=== PATIENT | male | born 1960 | race Caucasian/White ===

== ENCOUNTER 2017-02-03 14:00 | Outpatient (CLI) | payer BC, OTHER ==
[~2017-02-03 14:00] MED LIST: ATOR20TA66 PO; OLME40TA14 PO
--- OUTSIDE RECORDS SUMMARY | 2017-02-03 14:19 | XMS REPORT | Continuity of Care Document ---
Author Author [facility] Organization [facility] Address Unknown Phone Unavailable Allergies Medications Problems Procedures Results Encounters ACCT No. Visit Date/Time Discharge Status Pt. Type Provider Facility Loc./Unit Complaint [id number] 12/14/2013 07:31:00 2013 10:30:00 DIS Outpatient [id number] 12/08/2013 07:14:00 2013 23:59:59 CLS Outpatient
== END 2017-02-03 14:30 | disposition home or self-care (01) ==
LOC: SLEEP 14:00
PROVIDERS: ATTEND Nurse Practitioner Family
DX: G47.10 Hypersomnia, unspecified (principal); R06.83 Snoring; G47.30 Sleep apnea, unspecified

== ENCOUNTER 2017-06-22 08:56 | Emergency (ER) | payer OTHER ==
[~2017-06-22] VITALS: Ht 190.5 cm; Wt 133.8 kg
[2017-06-22] MEDS ORDERED: ATOR40TA70 PO (09:12)
[2017-06-22] MEDS ORDERED: HCTZ PO (09:12)
[2017-06-22] MEDS ORDERED: IRBE75TA10 PO (09:12)
[2017-06-22] MEDS ORDERED: TETANUS,DIPTH,PERTUSS P/F (BOOSTRIX) 0.5 ML VIAL IM ONE (09:15)
--- NOTE | 2017-06-22 09:37 | ED Integumentary General ---
General Chief Complaint: Bite-Animal/Human/Insect Stated Complaint: SPIDER BITE Nursing Triage Note: PT STATES HAS SPIDER BITE TO R EAR YESTERDAY, PT DID SEE SPIDER, PT HAS R SWOLLEN EAR, REDNESS AND SOME OOZING NOTED, PT HAS R SIDED GLANDS SWOLLEN IN NECK Source: patient Exam Limitations: no limitations History of Present Illness Time seen by provider: 09:29 Initial Comments The patient is a 56-year-old white male known to me for many years. He reports that yesterday while walking inside his house he felt the sensation of something crawling near his right ear. He brushed it away but continued to feel that and when he swept it away the second time he felt a sharp stinging sensation. He saw the spider but did not examine had for characteristics. Today he notes swelling of the right earlobe and some extension of swelling and discomfort along the sternocleidomastoid. Timing/Duration: yesterday Location: face Possible Cause: insect bite Associated Symptoms: edema, flushing, rash Allergies and Home Medications Allergies Coded Allergies: No Known Drug Allergies (Unverified , 07/05/11) Home Medications Atorvastatin Calcium 40 Mg Tablet, 40 MG PO DAILY, (Reported) Irbesartan 75 Mg Tablet, Unknown Dose PO, (Reported) [Hctz] , 25 PO DAILY, (Reported) Constitutional: see HPI EENTM: ear pain (external) Respiratory: no symptoms reported Cardiovascular: no symptoms reported Gastrointestinal: no symptoms reported Genitourinary: no symptoms reported Musculoskeletal: no symptoms reported Skin: no symptoms reported Psychiatric/Neurological: No Symptoms Reported Endocrine: No Symptoms Reported Hematologic/Lymphatic: No Symptoms Reported Past Lpayebl-Ypqhlh-Trtsmz Hx Patient Social History Alcohol Use: Denies Use Recreational Drug Use: No Smoking Status: Never a Smoker Recent Foreign Travel: No Contact w/Someone Who Travel: No Recent Infectious Disease Expo: No Recent Hopitalizations: No Immunizations Up To Date Tetanus Booster (TDap): Unknown Date of Influenza Vaccine: Nov 13, 2013 Respiratory Hx Respiratory Disorders: No Cardiovascular Hx Cardiac Disorders: No Cardiac Disorders: High Cholesterol, Hypertension Gastrointestinal Hx Gastrointestinal Disorders: No Musculoskeletal Hx Musculoskeletal Disorders: No Endocrine Hx Endocrine Disorders: No Physical Exam Vital Signs Vital Sign - Last 12Hours 06/22/17 09:00 Temp 97.4 Pulse 62 Resp 18 B/P (MAP) 154/104 Pulse Ox 95 Capillary Refill : Less Than 3 Seconds General Appearance: WD/WN, no apparent distress HEENT: other (see comment section) Neck: lymphadenopathy (R) (anterior cervical) Cardiovascular: normal peripheral pulses, regular rate, rhythm, no edema, no gallop, no JVD, no murmur Respiratory: chest non-tender, lungs clear, normal breath sounds, no respiratory distress, no accessory muscle use Comments The right earlobe is red and slightly warm and clearly edematous. On the posterior surface there are multiple serum crystals. There is erythema and firmness that goes from the mastoid shelter down the sternocleidomastoid. Progress/Results/Core Measures Results/Orders My Orders Orders - REHANA HUFF MD Dipht,Pertuss(Acell),Tet Adult (Boostrix (06/22/17 09:15) Medications Given in ED Current Medications Medications Dose Ordered Sig/Brent Route Start Time Stop Time Status Last Admin Dose Admin Diphtheria/ Tetanus/Acell Pertussis 0.5 ml ONCE ONCE IM 06/22/17 09:15 06/22/17 09:16 DC 06/22/17 09:15 0.5 ML Vital Signs/I&O Vital Sign - Last 12Hours 06/22/17 09:00 Temp 97.4 Pulse 62 Resp 18 B/P (MAP) 154/104 Pulse Ox 95 Blood Pressure Mean: 121 Departure Impression Impression: Primary Impression: inflammatory dermatitis consistent with spider bite Disposition: 01 HOME, SELF-CARE Condition: Stable/Unchanged Departure-Patient Inst. Decision time for Depature: 09:38 Referrals: MARTHA JIMENEZ MD (PCP/Family) Primary Care Physician Patient Instructions: Insect Bites and Stings (DC) Add. Discharge Instructions: All discharge instructions reviewed with patient and/or family. Voiced understanding. Use cold compresses at intervals today. Steroid cream as directed. If significant negative developments over the next 24 hours see your provider tomorrow Scripts Triamcinolone Acetonide (Triamcinolone Acetonide 0.5% Cream) 15 Gm Cream..g. 15 GM TP 3 times a day, #1 TUBE Prov: REHANA HUFF MD 06/22/17 REHANA HUFF MD Jun 22, 2017 09:37
[2017-06-22] MEDS ORDERED: TRIA15CR TP (09:39)
[2017-06-22 09:43] VITALS: BP 154/104
== END 2017-06-22 09:43 | disposition home or self-care (01) ==
LOC: EDUNIT# 08:56 → ER 08:57
DX: L30.9 Dermatitis, unspecified (principal); E78.00 Pure hypercholesterolemia, unspecified; I10 Essential (primary) hypertension
CPT/HCPCS: 90471; 90715; 99284

== ENCOUNTER 2019-07-01 10:45 | Outpatient (CLI) | payer OTHER ==
[~2019-07-01] VITALS: Ht 190.5 cm; Wt 133.8 kg
[~2019-07-01 10:45] MED LIST changes: +ATOR40TA70 PO; +HCTZ PO; +IRBE75TA10 PO; +TRIA15CR TP
[2019-07-01] MEDS ORDERED: CHLO25TA22 PO (10:51)
[2019-07-01] MEDS ORDERED: HYDR25TA4 PO (10:51)
[2019-07-01] MEDS ORDERED: PHEN-483 PO (10:51)
[2019-07-01] MEDS ORDERED: ROSU20TA31 PO (10:51)
[2019-07-01] MEDS ORDERED: IRBE300T18 PO (10:51)
== END 2019-07-01 11:48 | disposition home or self-care (01) ==
LOC: PREOP 10:45
PROVIDERS: ATTEND Internal Medicine
DX: Z01.818 Encounter for other preprocedural examination (principal)

== ENCOUNTER 2019-07-02 07:22 | Day surgery (SDC) | payer OTHER ==
--- NOTE | 2019-06-23 05:05 | HISTORY AND PHYSICAL ---
DATE OF SERVICE: 07/02/2019 COLONOSCOPY HISTORY AND PHYSICAL The patient was seen in the office on 06/21/2019, for followup of hypertension, obesity, on weight loss medication. He has a past history of adenomatous colonic polyp removal and is due for a surveillance colonoscopy which is set up for 07/02. He also reports that he is having some right intermittent medial knee discomfort. He has been walking 4-6 miles daily and has been getting along with phentermine well and his weight was down another 6.2 pounds over the last 3 months for a total weight loss of 17 pounds over the past six months. He had been steadily gaining weight prior to that. He has noticed no blood in his stool. Denies abdominal pain or bowel habit change. PHYSICAL EXAMINATION: GENERAL: Reveals a white male, appeared to be in no acute distress. VITAL SIGNS: He is 6 feet 2 inches tall and weight is down to 293.8 pounds. Blood pressure is 122/78. CHEST: Clear. CARDIOVASCULAR: Revealed a regular rate and rhythm without murmur, S3 or S4. ABDOMEN: Soft, supple without mass, organomegaly or tenderness. Rectal examination was deferred at the time of colonoscopy. EXTREMITIES: Reveal no cyanosis, clubbing or edema. He has pain over the right anserine bursa. There is some slight warmth without evidence for erythema. ASSESSMENT AND PLAN: 1. The patient was set up for surveillance colonoscopy due to past history of colon polyps on 07/02. Prep instructions for Suprep kit were given and questions were answered. 2. He is reassured about some onychomycosis of the right great toenail. He had already failed the oral therapy, did not advise a second round or different medication at this time due to its asymptomatic nature. 3. Right anserine bursitis, ibuprofen p.r.n. and ice. Discussed if his symptoms were not improving or getting worse to return for consideration for steroid injection. 4. Hypertension, under good control aided by weight loss. Continue current antihypertensives and phentermine which has not aggravated hypertension. Job ID: [id number] DocumentID: [id number] Dictated Date: 06/21/2019 16:43:44 Psychology Physician Date: 06/21/2019 17:49:33 Dictated By: MARTHA JIMENEZ MD
[~2019-07-02] VITALS: Ht 190.5 cm; Wt 133.8 kg
[2019-07-02] VITALS (10 sets, daily range): BP systolic 108–137; BP diastolic 63–86
[~2019-07-02 07:22] MED LIST changes: +CHLO25TA22 PO; +HYDR25TA4 PO; +IRBE300T18 PO; +PHEN-483 PO; +ROSU20TA32 PO
[2019-07-02] MEDS ORDERED: D5 LR IV SOLUTION 1,000 ML IV ONE (07:30)
[2019-07-02] MEDS ORDERED: D5 LR IV SOLUTION 1,000 ML IV STA (07:51)
[2019-07-02] MEDS ORDERED: LIDOCAINE JELLY 2% 6 ML SYRINGE ONE (07:57)
[2019-07-02] MEDS ORDERED: fentaNYL INJECTION 100 MCG/2 ML AMP ONE (07:57)
[2019-07-02] MEDS ORDERED: MIDAZOLAM 2 MG/2 ML (VERSED) VIAL ONE ×2 (07:58)
[2019-07-02] MEDS ORDERED: LIDOCAINE JELLY 2% 6 ML SYRINGE MM PRN (08:00)
[2019-07-02] MEDS ORDERED: fentaNYL INJECTION 100 MCG/2 ML AMP IVP ONE (08:00)
[2019-07-02] MEDS ORDERED: MIDAZOLAM 2 MG/2 ML (VERSED) VIAL IVP ONE (08:00)
--- NOTE | 2019-07-02 08:02 | Pre-Op Note & Conscious Sedat ---
Pre-Operative Progress Note H&P Reviewed The H&P was reviewed, patient examined and no changes noted. Date H&P Reviewed: Jul 02, 2019 Time H&P Reviewed: 07:45 Conscious Sedation Pre-Proced ASA Score 2 For ASA 3 and 4: Consider anesthesia and medical clearance. Also, for patients with a history of failed moderate sedation consider anesthesia. Airway Lungs Heart ASA score ASA 1: a normal healthy patient ASA 2: a patient with a mild systemic disease (mid diabetes, controlled hypertension, obesity ASA 3: a patient with a severe systemic disease that limits activity (angina, COPD, prior Myocardial infarction) ASA 4: a patient with an incapacitating disease that is a constant threat to life (CHF, renal failure) ASA 5: a moribund patient not expected to survive 24 hrs. (ruptured aneurysm) ASA 6: a declared brain- patient whose organs are being harvested. For emergent operations, add the letter E after the classification Mallampati Classification Grade 2 Sedation Plan Analgesia, Amnesia, Plan communicated to team members, Discussed options with patient/fam, Discussed risks with patient/fam The patient is an appropriate candidate to undergo the planned procedure, sedation, and anesthesia. The patient immediately re-assessed prior to indication. MARTHA JIMENEZ MD Jul 02, 2019 08:02
--- NOTE | 2019-07-02 15:04 | OPERATIVE REPORT ---
DATE OF SERVICE: 07/02/2019 COLONOSCOPY SUMMARY INDICATION FOR THE PROCEDURE: History of colon polyps. PROCEDURE IN DETAIL: The patient was placed in left lateral decubitus position. Prior to undergoing colonoscopy, digital rectal evaluation was performed. Anal sphincter tone was normal and the perianal reflex was intact. No abnormalities were noted on digital inspection of anal canal or distal rectal vault. Prostate is small in size, anodular and nontender to digital inspection. The colonoscope was then inserted into the rectum and under direct visualization advanced to cecum. The cecum was identified by identification of ileocecal valve and cecal strap and appendiceal orifice. Photographic documentation was obtained. Careful inspection was made as the colonoscope was withdrawn. The quality of prep was good. FINDINGS: There was no evidence for internal or external hemorrhoids. The rectum, sigmoid colon, descending colon, transverse colon, ascending colon and cecum were unremarkable. No evidence for diverticulum, polyps or inflammatory change was noted. ASSESSMENT: Normal colonoscopy to the cecum. We will advocate increasing surveillance interval to 5 years. Job ID: [id number] DocumentID: [id number] Dictated Date: 07/02/2019 08:42:56 [employer]cre[employer] Operator Date: 07/02/2019 15:04:47 Dictated By: MARTHA JIMENEZ MD MTDD
== END 2019-07-02 09:15 | disposition home or self-care (01) ==
LOC: ENDO 07:22
PROVIDERS: ATTEND Internal Medicine
DX: Z12.11 Encounter for screening for malignant neoplasm of colon (principal); I10 Essential (primary) hypertension; M71.50 Other bursitis, not elsewhere classified, unspecified site; E66.9 Obesity, unspecified; Z68.36 Body mass index [BMI] 36.0-36.9, adult; Z86.010 Personal history of colon polyps

== ENCOUNTER 2023-08-02 10:21 | Emergency (ER) | payer OTHER ==
[~2023-08-02] VITALS: Ht 187.9 cm; Wt 136.0 kg
[~2023-08-02 10:21] MED LIST changes: +IRBE300T17 PO; -IRBE300T18 PO; -IRBE75TA10 PO; +IRBE75TA9 PO; -ROSU20TA32 PO; +ROSU20TA73 PO
[2023-08-02] MEDS ORDERED: PRD20T PO (11:02)
--- NOTE | 2023-08-02 11:03 | ED Integumentary General ---
General Chief Complaint: Skin/Wound Problems Stated Complaint: RASH Nursing Triage Note: PT AMB TO [facility] WITH CC OF RASH ON ARMPITS AND GROIN AREA THAT STARTED FRIDAY. PT REPORTS THAT THE RASH SPREAD ALL OVER BODY ON FRIDAY OR FRIDAY. PT STATES THAT THE RASH ITCHES. Source: patient Exam Limitations: no limitations History of Present Illness Date Seen by Provider: Aug 02, 2023 Time Seen by Provider: 10:47 Initial Comments Here with report of rash to his inner arms that has been going on for almost the last week after he was working in the garden and he thought that this may be related to poison deborah. He played [employer] ball Friday and noted a rash on Friday in the area of the armpits in the groin that seems to have worsened. States that it feels better when he takes a warm shower but it gets worse afterwards and the itching is more significant this morning. Also has some itching to his feet. Has had long history of excess sweating of his feet. States that the rash to the arm pits and groin started after the exercise and he was quite sweaty. Denies fever or chills. Does not seem to be expanding further than the areas listed. He denies diabetes. Otherwise fairly healthy and active. Denies tick bite exposure Timing/Duration: week, getting worse Severity: mild Location: torso, feet, genitalia Possible Cause: exposure to allergen Associated Symptoms: No fever; rash Allergies and Home Medications Allergies Coded Allergies: No Known Drug Allergies (Unverified , 07/01/19) Patient Home Medication List Home Medication List Reviewed: Yes Chlorthalidone (Chlorthalidone) 25 Mg Tablet, 25 MG PO DAILY, (Reported) Entered as Reported by: WAYNE DAVEY on 07/01/19 1051 Irbesartan (Irbesartan) 300 Mg Tablet, 300 MG PO DAILY, (Reported) Entered as Reported by: WAYNE DAVEY on 07/01/19 1051 Phentermine HCl (Phentermine HCl) 37.5 Mg Capsule, 37.5 MG PO DAILY, (Reported) Entered as Reported by: WAYNE DAVEY on 07/01/19 1051 Prednisone (Prednisone) 20 Mg Tab, 40 MG PO DAILY Prescribed by: TIERNEY BRIGGS on 08/02/23 1102 Rosuvastatin Calcium (Rosuvastatin Calcium) 20 Mg Tablet, 20 MG PO DAILY, (Reported) Entered as Reported by: WAYNE DAVEY on 07/01/19 1051 Review of Systems Review of Systems Constitutional: No chills, No fever Respiratory: no symptoms reported Cardiovascular: no symptoms reported Skin: see HPI, change in color, lesions, pruritus, rash Past Euxnlzc-Ezasxv-Wyqjqi Hx Patient Social History Tobacco Use?: No Substance use?: No Alcohol Use?: No Immunizations Up To Date Tetanus Booster (TDap): Unknown Seasonal Allergies Seasonal Allergies: No Past Medical History Surgery/Hospitalization HX: HTN, CHOLESTROL Surgeries: No Respiratory: Yes Sleep Apnea Currently Using CPAP: Yes Cardiac: Yes High Cholesterol, Hypertension Neurological: No Sexually Transmitted Disease: No HIV/AIDS: No Genitourinary: No Gastrointestinal: No Musculoskeletal: No Endocrine: No HEENT: Yes (GLASSES) Loss of Vision: Denies Hearing Impairment: Denies Cancer: No Psychosocial: No Integumentary: No Blood Disorders: No Adverse Reaction/Blood Tranf: No (N/A) Family Medical History Reviewed Nursing Family Hx Physical Exam Vital Signs Vital Signs - First Documented 08/02/23 10:40 Pulse 58 B/P (MAP) 146/89 (108) Pulse Ox 96 O2 Delivery Room Air Capillary Refill : General Appearance: WD/WN, no apparent distress Neurologic/Psychiatric: alert, oriented x 3 Skin: warm/dry, rash (Rash noted to the axilla bilateral that encompasses the lower part without findings of significant infection. Rash noted to skin folds of groin that does not impact scrotum and penis. Does have redness and cracking to the base of the toes bilateral. He does have linear rash noted on forearms bilateral consistent with poison deborah.) Progress/Results/Core Measures Results/Orders Vital Signs/I&O 08/02/23 10:40 Pulse 58 B/P (MAP) 146/89 (108) Pulse Ox 96 O2 Delivery Room Air Blood Pressure Mean: 108 Progress Progress Note : Progress Note Seen and evaluated. This seems to be mixed picture for cause of rash. Does have athlete's foot noted on exam and I believe the rash to the folds of the skin in the groin or fungal related. Axillary rash may be more heat related and he does have poison deborah findings on both forearms. Due to the mixed picture, we will initiate prednisone treatment short course for the poison deborah and we will use topical OTC medicines for the groin and feet. I did discuss outpatient therapy and management of fungal infection. Discharged home with return precautions. Patient verbalized understanding of instructions and agreement with plan. Departure Impression Primary Impression: Poison deborah dermatitis Additional Impressions: Heat rash Athletes foot Qualified Codes: B35.3 - Tinea pedis Disposition: 01 HOME, SELF-CARE Condition: Stable Departure-Patient Inst. Decision time for Depature: 10:58 Referrals: MARTHA JIMENEZ MD (PCP/Family) Primary Care Physician Patient Instructions: Fungal Skin Rash (DC), Heat rash (prickly heat), Athlete's Foot Add. Discharge Instructions: All discharge instructions reviewed with patient and/or family. Voiced understanding. May use Lotrimin, Lamisil or Tinactin or generics spray or cream to your feet and groin area to treat fungal infection. You may use topical triple antibiotic cream to the areas of the armpits bilateral once or twice a day as needed. You may use spray antiperspirant deodorant to the feet to reduce sweating. You should wash your shower p.m. with bleach and change out any rags or sponges in the shower. Follow-up with your doctor later this week for recheck and further evaluation. Start prednisone for the poison deborah noted on the arms. Return for worse pain, redness, swelling, fever or other as needed. Scripts Prednisone (Prednisone) 20 Mg Tab 40 MG PO DAILY, #10 TAB 0 Refills Prov: TIERNEY BRIGGS MD 08/02/23 TIERNEY BRIGGS MD Aug 02, 2023 11:03
[2023-08-02 11:09] VITALS: BP 129/82
== END 2023-08-02 11:09 | disposition home or self-care (01) ==
LOC: EDUNIT# 10:21 → ER 10:24
DX: L23.7 Allergic contact dermatitis due to plants, except food (principal); B35.3 Tinea pedis
CPT/HCPCS: 99281